=== PATIENT | male | born 1940 | race Caucasian/White ===

== ENCOUNTER → 2023-11-19 08:53 | Outpatient (REF) | payer MEDICARE, OTHER, SELFPAY ==
[2023-11-19 09:23] LABS: Urine Albumin 1+ (Neg - Trace); Urine Bilirubin Negative (Negative); Urine Character Clear (Clear); Urine Color Yellow; Urine Glucose Negative (Negative); Urine Ketone Negative (Negative); Urine Leukocyte Negative (Negative); Urine Nitrite Negative (Negative); Urine Occult Blood Negative (Negative); Urine Urobilinogen Negative (Neg - 1+)
[2023-11-19 10:18] LABS: % Eosinophils 1.8 % (0-6); % Immature Granulocytes 0.4 % (0-0.5); % Lymphocytes 16.2 % (20.5-51.1); % Monocytes 6.8 % (1.7-9.3); % Neutrophils 73.8 % (42.2-75.2); Absolute Basophils 0.1 10^3/uL (0-0.2); Absolute Eosinophils 0.1 10^3/uL (0-0.7); Absolute Lymphocytes 1.2 10^3/uL (1.2-3.4); Absolute Monocytes 0.5 10^3/uL (0.1-0.6); Absolute Neutrophils 5.3 10^3/uL (1.4-6.5); Hematocrit 31.3 % (39.0-52.0); Hemoglobin 10.7 g/dL (13.0-18.0); Mean Corp Hgb Conc. 34.2 g/dL (33.0-37.0); Mean Corpuscular Volume 93.7 fL (80.0-94.0); Mean Platelet Volume 11.8 fL (7.4-10.4); Nucleated Red Blood Cells % 0 % (-); Platelet Count 210 10^3/uL (130-400); Red Blood Cell Count 3.34 10^6/uL (4.70-6.10); Red Cell Dist. Width 12.5 % (11.5-14.5); White Blood Cell Count 7.2 10^3/uL (4.8-10.8)
[2023-11-19 10:22] LABS: Urine Bacteria Few (Negative); Urine Red Blood Cell 0-2 /HPF (0-2)
[2023-11-19 10:52] LABS: ALT (SGPT) 17 U/L (0-50); AST (SGOT) 21 U/L (17-59); Albumin 4.1 g/dl (3.5-5.0); Alkaline Phosphatase 92 U/L (38-126); Blood Urea Nitrogen 60 mg/dl (9-20); Calcium 9.2 mg/dl (8.4-10.2); Carbon Dioxide 22 mmol/L (22-30); Chloride 107 mmol/L (98-107); Glucose 98 mg/dl (70-99); HDL Cholesterol 44 mg/dl; LDL Cholesterol, Calculated 76 mg/dl; Potassium 4.5 mmol/L (3.5-5.1); Sodium 139 mmol/L (135-145); Total Bilirubin 0.6 mg/dl (0.2-1.3); Total Cholesterol 145 mg/dl (50-199); Total Protein 6.7 g/dl (6.3-8.2); Triglyceride 126 mg/dl (10-149); Very Low Density Lipoprotein 25 mg/dl (0-30); eGFR 18.61
== END ==
LOC: REG 08:53
PROVIDERS: ATTENDING PHYSICIAN Internal Medicine
DX: I10 Essential (primary) hypertension (principal); E78.2 Mixed hyperlipidemia; N18.9 Chronic kidney disease, unspecified
CPT/HCPCS: 36415; 80053; 80061; 81003; 81015; 85025

== ENCOUNTER → 2023-12-24 08:49 | Outpatient (REF) | payer MEDICARE, OTHER, SELFPAY ==
[2023-12-24 12:40] LABS: Urine Protein 68 mg/dl (0-12)
[2023-12-24 13:08] LABS: Albumin 4.3 g/dl (3.5-5.0); Blood Urea Nitrogen 47 mg/dl (9-20); Calcium 9.4 mg/dl (8.4-10.2); Carbon Dioxide 24 mmol/L (22-30); Chloride 100 mmol/L (98-107); Glucose 131 mg/dl (70-99); Iron 108 ug/dl (49-181); Sodium 134 mmol/L (135-145); eGFR 20.81
[2023-12-24 13:16] LABS: Percent Saturation 42 % (20-50); Total Iron Binding Capacity 257 ug/dl (261-462)
== END ==
LOC: RAD 08:49
PROVIDERS: ATTENDING PHYSICIAN Internal Medicine; FAMILY PHYSICIAN Internal Medicine
DX: I10 Essential (primary) hypertension (principal); N17.9 Acute kidney failure, unspecified; D64.9 Anemia, unspecified
CPT/HCPCS: 36415; 80069; 82570; 82728; 82784; 83521; 83540; 83550; 83970; 84155; 84156; 84165; 86334; 93975

== ENCOUNTER → 2024-02-02 10:21 | Outpatient (REF) | payer MEDICARE, OTHER, SELFPAY ==
[2024-02-02 12:41] LABS: Glycohemoglobin (HgbA1c) 5.3 % (4.0-5.6)
[2024-02-02 13:14] LABS: Albumin 4.2 g/dl (3.5-5.0); Blood Urea Nitrogen 44 mg/dl (9-20); Calcium 9.3 mg/dl (8.4-10.2); Carbon Dioxide 24 mmol/L (22-30); Chloride 99 mmol/L (98-107); Glucose 88 mg/dl (70-99); Potassium 3.8 mmol/L (3.5-5.1); Sodium 138 mmol/L (135-145); eGFR 19.98
[2024-02-04 12:39] LABS: 24 Hour Urine Total Volume Random mL; Urine Collection Length Random hr; Urine Free Kappa Light Chains 60.32 mg/L (0.00-32.90); Urine Free Lambda Light Chains 7.27 mg/L (0.00-3.79)
== END ==
LOC: REG 10:21
PROVIDERS: ATTENDING PHYSICIAN Internal Medicine; FAMILY PHYSICIAN Internal Medicine
DX: N17.9 Acute kidney failure, unspecified (principal); N18.4 Chronic kidney disease, stage 4 (severe); R80.9 Proteinuria, unspecified; R73.02 Impaired glucose tolerance (oral)
CPT/HCPCS: 36415; 80069; 83036; 83521; 84156; 86335

== ENCOUNTER → 2024-02-22 13:53 | Outpatient (REF) | payer MEDICARE, OTHER, SELFPAY ==
[2024-02-22 15:01] LABS: % Basophils 0.9 % (0-2); % Eosinophils 0.9 % (0-6); % Immature Granulocytes 0.3 % (0-0.5); % Lymphocytes 19.3 % (20.5-51.1); % Monocytes 7.4 % (1.7-9.3); % Neutrophils 71.2 % (42.2-75.2); Absolute Basophils 0.1 10^3/uL (0-0.2); Absolute Eosinophils 0.1 10^3/uL (0-0.7); Absolute Lymphocytes 1.3 10^3/uL (1.2-3.4); Absolute Monocytes 0.5 10^3/uL (0.1-0.6); Absolute Neutrophils 4.9 10^3/uL (1.4-6.5); Mean Corp Hgb Conc. 33.3 g/dL (33.0-37.0); Mean Corpuscular Volume 92.9 fL (80.0-94.0); Mean Platelet Volume 11.6 fL (7.4-10.4); Nucleated Red Blood Cells % 0 % (-); Platelet Count 207 10^3/uL (130-400); Red Blood Cell Count 3.23 10^6/uL (4.70-6.10); Red Cell Dist. Width 12.6 % (11.5-14.5); White Blood Cell Count 6.9 10^3/uL (4.8-10.8)
[2024-02-22 15:12] LABS: Blood Urea Nitrogen 54 mg/dl (9-20); Calcium 8.9 mg/dl (8.4-10.2); Carbon Dioxide 22 mmol/L (22-30); Chloride 101 mmol/L (98-107); Glucose 89 mg/dl (70-99); Phosphorus 4.5 mg/dl (2.5-4.5); Potassium 4.1 mmol/L (3.5-5.1); Sodium 138 mmol/L (135-145); eGFR 18.49
[2024-02-22 15:38] LABS: Urine Protein 157 mg/dl (0-12)
== END ==
LOC: REG 13:53
PROVIDERS: ATTENDING PHYSICIAN Internal Medicine; FAMILY PHYSICIAN Internal Medicine
DX: I10 Essential (primary) hypertension (principal); N18.4 Chronic kidney disease, stage 4 (severe); N17.9 Acute kidney failure, unspecified; R80.9 Proteinuria, unspecified
CPT/HCPCS: 36415; 80069; 82570; 84156; 85025

== ENCOUNTER → 2024-04-06 09:46 | Outpatient (REF) | payer MEDICARE, OTHER, SELFPAY ==
[2024-04-06 11:58] LABS: Urine Albumin 2+ (Neg - Trace); Urine Bilirubin Negative (Negative); Urine Character Clear (Clear); Urine Color Yellow; Urine Glucose Negative (Negative); Urine Ketone Negative (Negative); Urine Leukocyte Negative (Negative); Urine Nitrite Negative (Negative); Urine Occult Blood Negative (Negative); Urine Specific Gravity 1.015 (<1.030); Urine Urobilinogen Negative (Neg - 1+)
[2024-04-06 12:07] LABS: Albumin 4.1 g/dl (3.5-5.0); Blood Urea Nitrogen 60 mg/dl (9-20); Calcium 9.1 mg/dl (8.4-10.2); Carbon Dioxide 24 mmol/L (22-30); Chloride 100 mmol/L (98-107); Glucose 106 mg/dl (70-99); Phosphorus 4.2 mg/dl (2.5-4.5); Potassium 3.8 mmol/L (3.5-5.1); Sodium 141 mmol/L (135-145); eGFR 16.06
[2024-04-06 12:13] LABS: Complement C3 138 mg/dl (88-165)
[2024-04-06 12:47] LABS: Urine Squamous Cell 0-2 /LPF (Few)
[2024-04-06 12:48] LABS: Urine Amorphous Seen
[2024-04-06 12:49] LABS: Urine Red Blood Cell 0-2 /HPF (0-2); Urine White Cell 0-2 /HPF (0-5)
[2024-04-06 12:50] LABS: Urine Protein 291 mg/dl (0-12)
[2024-04-07 22:55] LABS: Myeloperoxidase Antibody 0 AU/mL (0-19); Serine Protease-3, IgG 0 AU/mL (0-19)
[2024-04-08 01:58] LABS: ANA, IgG Reflex to HEp-2 None Detected (None Detected)
[2024-04-09 00:49] LABS: Phospholipase A2 Receptor, IgG <1:10 (<1:10)
== END ==
LOC: REG 09:46
PROVIDERS: ATTENDING PHYSICIAN Internal Medicine
DX: N17.9 Acute kidney failure, unspecified (principal)
CPT/HCPCS: 36415; 80069; 81003; 81015; 82570; 83516; 84156; 86038; 86160; 86255

== ENCOUNTER 2024-05-01 07:57 | Outpatient (REF) | payer MEDICARE, OTHER, SELFPAY ==
[2024-05-01] VITALS (15 sets, daily range): BP systolic 51–163; BP diastolic 57–99
[2024-05-01 08:28] LABS: % Basophils 0.7 % (0-2); % Eosinophils 2.7 % (0-6); % Immature Granulocytes 0.3 % (0-0.5); % Lymphocytes 17.6 % (20.5-51.1); % Monocytes 6.1 % (1.7-9.3); % Neutrophils 72.6 % (42.2-75.2); Absolute Basophils 0.1 10^3/uL (0-0.2); Absolute Eosinophils 0.2 10^3/uL (0-0.7); Absolute Lymphocytes 1.3 10^3/uL (1.2-3.4); Absolute Monocytes 0.5 10^3/uL (0.1-0.6); Absolute Neutrophils 5.4 10^3/uL (1.4-6.5); Hematocrit 32.1 % (39.0-52.0); Hemoglobin 10.8 g/dL (13.0-18.0); Mean Corp Hgb Conc. 33.6 g/dL (33.0-37.0); Mean Corpuscular Hgb 32.3 pg (27.0-31.0); Mean Corpuscular Volume 96.1 fL (80.0-94.0); Mean Platelet Volume 11.1 fL (7.4-10.4); Nucleated Red Blood Cells % 0 % (-); Platelet Count 210 10^3/uL (130-400); Red Blood Cell Count 3.34 10^6/uL (4.70-6.10); Red Cell Dist. Width 12.6 % (11.5-14.5); White Blood Cell Count 7.4 10^3/uL (4.8-10.8)
[2024-05-01 08:33] LABS: INR 0.92; PT 12.7 Sec (11.4-14.6)
[2024-05-01 08:38] LABS: Blood Urea Nitrogen 51 mg/dl (9-20); Calcium 9.3 mg/dl (8.4-10.2); Carbon Dioxide 25 mmol/L (22-30); Chloride 104 mmol/L (98-107); Glucose 99 mg/dl (70-99); Potassium 4.1 mmol/L (3.5-5.1); Sodium 141 mmol/L (135-145); eGFR 15.05
[2024-05-01] MEDS: CATAPRES 0.1 MG PO (08:51)
[2024-05-01 15:10] LABS: Hematocrit 28.6 % (39.0-52.0); Hemoglobin 9.7 g/dL (13.0-18.0)
== END 2024-05-01 15:47 | disposition home or self-care (01) ==
LOC: RADI 07:57
PROVIDERS: Physician Assistant; ATTENDING PHYSICIAN Internal Medicine; FAMILY PHYSICIAN Internal Medicine
DX: N17.9 Acute kidney failure, unspecified (principal); I12.9 Hypertensive chronic kidney disease with stage 1 through stage 4 chronic kidney disease, or unspecified chronic kidney disease; N18.4 Chronic kidney disease, stage 4 (severe); D68.8 Other specified coagulation defects
CPT/HCPCS: 36415; 50200; 76942; 80048; 85014; 85018; 85025; 85610; 88305; 99152; 99153

== ENCOUNTER → 2024-05-19 13:21 | Outpatient (REF) | payer MEDICARE, OTHER, SELFPAY ==
[2024-05-19 13:59] LABS: Hematocrit 30.2 % (39.0-52.0); Mean Corp Hgb Conc. 33.1 g/dL (33.0-37.0); Mean Corpuscular Hgb 31.4 pg (27.0-31.0); Mean Platelet Volume 11.3 fL (7.4-10.4); Platelet Count 217 10^3/uL (130-400); Red Blood Cell Count 3.18 10^6/uL (4.70-6.10); Red Cell Dist. Width 12.6 % (11.5-14.5); White Blood Cell Count 6.1 10^3/uL (4.8-10.8)
[2024-05-19 14:08] LABS: Albumin 4.1 g/dl (3.5-5.0); Blood Urea Nitrogen 62 mg/dl (9-20); Carbon Dioxide 26 mmol/L (22-30); Chloride 100 mmol/L (98-107); Glucose 117 mg/dl (70-99); Potassium 3.7 mmol/L (3.5-5.1); Sodium 134 mmol/L (135-145); eGFR 12.62
== END ==
LOC: REG 13:21
PROVIDERS: ATTENDING PHYSICIAN Internal Medicine; FAMILY PHYSICIAN Internal Medicine
DX: N17.9 Acute kidney failure, unspecified (principal)
CPT/HCPCS: 36415; 80069; 85027

== ENCOUNTER → 2024-06-10 09:48 | Outpatient (REF) | payer MEDICARE, OTHER, SELFPAY ==
[2024-06-10 11:16] LABS: Albumin 3.8 g/dl (3.5-5.0); Blood Urea Nitrogen 71 mg/dl (9-20); Calcium 8.8 mg/dl (8.4-10.2); Carbon Dioxide 23 mmol/L (22-30); Chloride 101 mmol/L (98-107); Glucose 97 mg/dl (70-99); Phosphorus 5.5 mg/dl (2.5-4.5); Potassium 3.8 mmol/L (3.5-5.1); Sodium 138 mmol/L (135-145); eGFR 10.83
== END ==
LOC: REG 09:48
PROVIDERS: ATTENDING PHYSICIAN Internal Medicine; FAMILY PHYSICIAN Internal Medicine
DX: N18.4 Chronic kidney disease, stage 4 (severe) (principal); D64.9 Anemia, unspecified; I10 Essential (primary) hypertension; R80.9 Proteinuria, unspecified
CPT/HCPCS: 36415; 80069

== ENCOUNTER → 2024-06-15 10:29 | Outpatient (REF) | payer MEDICARE, OTHER, SELFPAY ==
[2024-06-15 12:30] LABS: Blood Urea Nitrogen 69 mg/dl (9-20); Carbon Dioxide 22 mmol/L (22-30); Chloride 101 mmol/L (98-107); Glucose 99 mg/dl (70-99); Phosphorus 5.6 mg/dl (2.5-4.5); Potassium 3.8 mmol/L (3.5-5.1); Sodium 137 mmol/L (135-145); eGFR 11.09
== END ==
LOC: REG 10:29
PROVIDERS: ATTENDING PHYSICIAN Internal Medicine; FAMILY PHYSICIAN Internal Medicine
DX: N18.4 Chronic kidney disease, stage 4 (severe) (principal); D64.9 Anemia, unspecified; I10 Essential (primary) hypertension; R80.9 Proteinuria, unspecified
CPT/HCPCS: 36415; 80069

== ENCOUNTER → 2024-06-21 11:06 | Outpatient (REF) | payer MEDICARE, OTHER, SELFPAY ==
[2024-06-21 13:54] LABS: Albumin 4.1 g/dl (3.5-5.0); Blood Urea Nitrogen 67 mg/dl (9-20); Calcium 8.7 mg/dl (8.4-10.2); Carbon Dioxide 21 mmol/L (22-30); Chloride 101 mmol/L (98-107); Glucose 94 mg/dl (70-99); Sodium 136 mmol/L (135-145); eGFR 10.33
== END ==
LOC: RAD 11:06
PROVIDERS: ATTENDING PHYSICIAN Surgery Vascular Surgery; FAMILY PHYSICIAN Internal Medicine; REFERRING PHYSICIAN Internal Medicine
DX: N18.4 Chronic kidney disease, stage 4 (severe) (principal); D64.9 Anemia, unspecified; I10 Essential (primary) hypertension; R80.9 Proteinuria, unspecified; Z01.818 Encounter for other preprocedural examination
CPT/HCPCS: 36415; 80069; 93985

== ENCOUNTER 2024-06-29 09:30 | Day surgery (SDC) | payer MEDICARE, OTHER, SELFPAY ==
[2024-06-29] VITALS (13 sets, daily range): BP systolic 133–183; BP diastolic 57–85; BMI 24.8
[2024-06-29 09:58] LABS: Hematocrit 26.9 % (39.0-52.0); Hemoglobin 9.1 g/dL (13.0-18.0); Mean Corp Hgb Conc. 33.8 g/dL (33.0-37.0); Mean Corpuscular Hgb 31.2 pg (27.0-31.0); Mean Corpuscular Volume 92.1 fL (80.0-94.0); Mean Platelet Volume 11.6 fL (7.4-10.4); Platelet Count 205 10^3/uL (130-400); Red Blood Cell Count 2.92 10^6/uL (4.70-6.10); Red Cell Dist. Width 12.6 % (11.5-14.5); White Blood Cell Count 6.8 10^3/uL (4.8-10.8)
--- NOTE | 2024-06-29 10:17 | W.SUR.PREOP ---
Pre-Operative Surgical Note
-
I have examined this patient prior to the performance of the scheduled procedure.
The patient's condition is unchanged from the time of the current History and
Physical and the patient is able to undergo the scheduled procedure.
[2024-06-29 10:26] LABS: INR 0.97; PT 13.4 Sec (11.4-14.6)
[2024-06-29] MEDS: BACTROBAN NASAL 1 GRAM NASAL (10:27)
[2024-06-29] MEDS: PERIDEX 0.12% ORAL RINSE 15 ML PO (10:28)
[2024-06-29 10:30] LABS: Blood Urea Nitrogen 71 mg/dl (9-20); Calcium 9.2 mg/dl (8.4-10.2); Carbon Dioxide 21 mmol/L (22-30); Chloride 105 mmol/L (98-107); Estimated Creatinine Clearance 10 ml/min; Glucose 102 mg/dl (70-99); Potassium 3.8 mmol/L (3.5-5.1); Sodium 139 mmol/L (135-145); eGFR 9.87
--- NOTE | 2024-06-29 10:31 | OR.RPT ---
Operative Report
Operative Report
PROCEDURE DATE: 06/29/2024
Preoperative diagnosis: Chronic kidney disease, approaching need for hemodialysis.
Postoperative diagnosis: Same
Procedure: Left upper extremity brachiocephalic arteriovenous fistula creation
Surgeon: Alden
Top And Seat Cover Fitter: KARIME England, required for all aspects of procedure including assistance with traction/countertraction, following a suture line, assistance with closure.
Complications: None
Anesthesia: General
Indications for procedure:
Chronic kidney disease worsening. Referred for AV access creation. Risk/benefits/alternatives all fully discussed. Patient understood all wished to proceed.
Description of procedure:
Patient was identified brought to the operating room placed on the table in supine position. Patient's vein mapping had shown marginal vein. After the administration of anesthesia, I assessed his veins myself in the left upper extremity with a
ultrasound. This demonstrated the upper arm cephalic vein to be suitable. Slightly on the smaller side but definitely reasonable. Therefore I elected to proceed with attempted brachiocephalic arteriovenous fistula creation. After the adequate
administration of anesthesia and perioperative antibiotics he was prepped and draped in the standard surgical fashion. A standard preoperative timeout was undertaken and everybody was in agreement the plan. A transverse incision was made in the
proximal volar aspect of the forearm just distal to the antecubital fossa. This was carried through skin subcutaneous tissue. The antecubital extension of the cephalic vein was identified and carefully dissected away from surrounding structures
and great care to avoid any injury to structures. The vein itself seemed of reasonable size and caliber. Any branches were ligated between silk ties and then divided. As such I was able to mobilize a suitable length of cephalic vein. Once I
done this I then deepened my dissection in the medial aspect of the incision site through the fascial layer. The brachial artery was carefully identified and carefully dissected away from surrounding structures take great care to avoid injury to
structures. I passed a vessel loop around it proximally and distally. Next I gave the patient 3000 units of intravenous heparin. I then ligated the cephalic vein distally in my field with a silk tie and a clip. I then transected it. I
distended under heparinized saline. It distended very well. I marked the anterior surface under distention to avoid any kinking or twisting. The vein was suitable size but just to be sure I sequentially ran 2, 2.5, 3 mm dilators through which
all passed without any difficulty whatsoever. Next I tightened my double looped Vesseloops on the artery proximally and distally. I then made an arteriotomy with 11 blade extended using a Ryan scissor. I spatulated the cephalic vein and sewed an
end to side anastomosis using a running 6-0 Prolene suture (four-quadrant technique). Prior to completing and tying down my suture line I backbled and forebled the port lions artery. Next I released my bulldog clamp on the vein and then released my
Vesseloops on the artery. There was an excellent thrill in the fistula. There was an easily palpable pulse at the wrist in the radial artery. At this point I was very satisfied. I irrigated. I achieved and confirmed full hemostasis. We then
closed in layers using 3-0 Vicryl deep dermal layer followed by 4-0 Monocryl subcuticular stitch. Dermabond was applied. The patient tolerated the procedure well.
--- NOTE | 2024-06-29 12:30 | W.SUR.POST ---
Surgical Immediate Post Op
Note
Pre Op Diagnosis: End-stage renal disease
Post Op Diagnosis: Same
Procedure Performed: Left upper extremity brachiocephalic AV fistula creation
Primary Surgeon: Alden
Assist: Samanta HERNANDEZ
Anesthesia: LMA
Estimated Blood Loss: Less than 2 cc
Fluids: See anesthesia flowsheet
Drains/Shunts: None
Specimens/Cultures: None
Doppler/Duplex/Angio (Y/N): Y
Complications: None
Operative Findings: Palpable thrill upon completion
== END 2024-06-29 14:37 | disposition home or self-care (01) ==
LOC: CATH 09:30
PROVIDERS: ATTENDING PHYSICIAN Surgery Vascular Surgery; PRIMARYCARE PHYSICIAN Internal Medicine
DX: I12.9 Hypertensive chronic kidney disease with stage 1 through stage 4 chronic kidney disease, or unspecified chronic kidney disease (principal); N18.4 Chronic kidney disease, stage 4 (severe); K21.9 Gastro-esophageal reflux disease without esophagitis
CPT/HCPCS: 36821; 80048; 85027; 85610; 85730; 86850; 86900; 86901; 93005

== ENCOUNTER → 2024-07-07 10:26 | Outpatient (REF) | payer MEDICARE, OTHER, SELFPAY ==
[2024-07-07 12:09] LABS: Albumin 3.9 g/dl (3.5-5.0); Blood Urea Nitrogen 81 mg/dl (9-20); Calcium 8.8 mg/dl (8.4-10.2); Carbon Dioxide 19 mmol/L (22-30); Chloride 102 mmol/L (98-107); Glucose 117 mg/dl (70-99); Phosphorus 6.1 mg/dl (2.5-4.5); Potassium 4.2 mmol/L (3.5-5.1); Sodium 136 mmol/L (135-145); eGFR 10.83
== END ==
LOC: REG 10:26
PROVIDERS: ATTENDING PHYSICIAN Internal Medicine; FAMILY PHYSICIAN Internal Medicine
DX: N18.4 Chronic kidney disease, stage 4 (severe) (principal); D64.9 Anemia, unspecified; I10 Essential (primary) hypertension; R80.9 Proteinuria, unspecified
CPT/HCPCS: 36415; 80069

== ENCOUNTER → 2024-07-12 11:22 | Outpatient (REF) | payer MEDICARE, OTHER, SELFPAY ==
[2024-07-12 13:54] LABS: Albumin 3.7 g/dl (3.5-5.0); Blood Urea Nitrogen 84 mg/dl (9-20); Calcium 8.9 mg/dl (8.4-10.2); Carbon Dioxide 23 mmol/L (22-30); Chloride 102 mmol/L (98-107); Glucose 94 mg/dl (70-99); Potassium 4.4 mmol/L (3.5-5.1); Sodium 137 mmol/L (135-145); eGFR 9.65
== END ==
LOC: REG 11:22
PROVIDERS: ATTENDING PHYSICIAN Internal Medicine; FAMILY PHYSICIAN Internal Medicine
DX: N18.4 Chronic kidney disease, stage 4 (severe) (principal); D64.9 Anemia, unspecified; I10 Essential (primary) hypertension; R80.9 Proteinuria, unspecified
CPT/HCPCS: 36415; 80069

== ENCOUNTER → 2024-07-26 10:53 | Outpatient (REF) | payer MEDICARE, OTHER, SELFPAY ==
[2024-07-26 11:31] LABS: Hematocrit 24.3 % (39.0-52.0); Hemoglobin 8.1 g/dL (13.0-18.0); Mean Corp Hgb Conc. 33.3 g/dL (33.0-37.0); Mean Corpuscular Hgb 31.9 pg (27.0-31.0); Mean Corpuscular Volume 95.7 fL (80.0-94.0); Mean Platelet Volume 11.3 fL (7.4-10.4); Platelet Count 189 10^3/uL (130-400); Red Blood Cell Count 2.54 10^6/uL (4.70-6.10); Red Cell Dist. Width 12.5 % (11.5-14.5); White Blood Cell Count 7.5 10^3/uL (4.8-10.8)
[2024-07-26 12:12] LABS: Intact PTH 113.9 pg/ml (13.6-85.8)
[2024-07-26 18:03] LABS: Albumin 4.1 g/dl (3.5-5.0); Blood Urea Nitrogen 79 mg/dl (9-20); Calcium 9.4 mg/dl (8.4-10.2); Carbon Dioxide 20 mmol/L (22-30); Chloride 99 mmol/L (98-107); Glucose 99 mg/dl (70-99); Iron 70 ug/dl (49-181); Percent Saturation 26 % (20-50); Phosphorus 5.8 mg/dl (2.5-4.5); Potassium 3.9 mmol/L (3.5-5.1); Sodium 135 mmol/L (135-145); Total Iron Binding Capacity 260 ug/dl (261-462)
== END ==
LOC: REG 10:53
PROVIDERS: ATTENDING PHYSICIAN Internal Medicine; FAMILY PHYSICIAN Internal Medicine
DX: N18.4 Chronic kidney disease, stage 4 (severe) (principal); I10 Essential (primary) hypertension; D64.9 Anemia, unspecified
CPT/HCPCS: 36415; 80069; 82728; 83540; 83550; 83970; 85027

== ENCOUNTER → 2024-08-03 11:07 | Outpatient (REF) | payer MEDICARE, OTHER, SELFPAY | LOC: RAD 11:07 | PROVIDERS: ATTENDING PHYSICIAN Physician Assistant; FAMILY PHYSICIAN Internal Medicine | DX: I77.0 Arteriovenous fistula, acquired (principal) | CPT/HCPCS: 93990 ==

== ENCOUNTER 2024-08-24 14:04 | Outpatient (RCR) | payer MEDICARE, OTHER, SELFPAY ==
[2024-08-08 14:42] VITALS: BP 155/67
[2024-08-08] MEDS: RETACRIT 10000 UNITS SC (14:56)
[2024-08-15 14:38] LABS: % Basophils 0.5 % (0-2); % Eosinophils 1.4 % (0-6); % Immature Granulocytes 0.2 % (0-0.5); % Lymphocytes 15.2 % (20.5-51.1); % Monocytes 7.7 % (1.7-9.3); Absolute Eosinophils 0.1 10^3/uL (0-0.7); Absolute Monocytes 0.5 10^3/uL (0.1-0.6); Absolute Neutrophils 4.7 10^3/uL (1.4-6.5); Hemoglobin 8.1 g/dL (13.0-18.0); Mean Corp Hgb Conc. 33.8 g/dL (33.0-37.0); Mean Corpuscular Hgb 31.8 pg (27.0-31.0); Mean Corpuscular Volume 94.1 fL (80.0-94.0); Mean Platelet Volume 10.8 fL (7.4-10.4); Platelet Count 215 10^3/uL (130-400); Red Blood Cell Count 2.55 10^6/uL (4.70-6.10); White Blood Cell Count 6.2 10^3/uL (4.8-10.8)
[2024-08-17] MEDS: RETACRIT 10000 UNITS SC (14:40)
[2024-08-17 15:06] VITALS: BP 156/60
[2024-08-24 14:40] LABS: % Basophils 0.3 % (0-2); % Eosinophils 1.2 % (0-6); % Immature Granulocytes 0.2 % (0-0.5); % Monocytes 7.5 % (1.7-9.3); % Neutrophils 75.8 % (42.2-75.2); Absolute Eosinophils 0.1 10^3/uL (0-0.7); Absolute Monocytes 0.5 10^3/uL (0.1-0.6); Absolute Neutrophils 4.9 10^3/uL (1.4-6.5); Hematocrit 25.2 % (39.0-52.0); Hemoglobin 8.7 g/dL (13.0-18.0); Mean Corp Hgb Conc. 34.5 g/dL (33.0-37.0); Mean Corpuscular Hgb 32.6 pg (27.0-31.0); Mean Corpuscular Volume 94.4 fL (80.0-94.0); Mean Platelet Volume 10.1 fL (7.4-10.4); Platelet Count 191 10^3/uL (130-400); Red Blood Cell Count 2.67 10^6/uL (4.70-6.10); Red Cell Dist. Width 13.1 % (11.5-14.5); White Blood Cell Count 6.4 10^3/uL (4.8-10.8)
[2024-08-24 14:50] VITALS: BP 149/62
[2024-08-24 15:15] LABS: Blood Urea Nitrogen 79 mg/dl (9-20); Calcium 9.6 mg/dl (8.4-10.2); Carbon Dioxide 27 mmol/L (22-30); Chloride 100 mmol/L (98-107); Glucose 142 mg/dl (70-99); Potassium 3.9 mmol/L (3.5-5.1); Sodium 140 mmol/L (135-145)
[2024-08-24] MEDS: RETACRIT 20000 UNITS SC (15:15)
== END 2024-08-28 14:06 | disposition home or self-care (01) ==
LOC: OID 14:04
PROVIDERS: ATTENDING PHYSICIAN Internal Medicine; FAMILY PHYSICIAN Internal Medicine
DX: N18.4 Chronic kidney disease, stage 4 (severe) (principal); D63.1 Anemia in chronic kidney disease; N17.9 Acute kidney failure, unspecified
CPT/HCPCS: 36415; 80048; 85025; 96372; Q5106

== ENCOUNTER 2024-09-14 13:23 | Outpatient (RCR) | payer MEDICARE, OTHER, SELFPAY ==
[2024-08-31 14:00] LABS: % Basophils 0.9 % (0-2); % Eosinophils 1.6 % (0-6); % Immature Granulocytes 0.4 % (0-0.5); % Lymphocytes 13.4 % (20.5-51.1); % Monocytes 7.7 % (1.7-9.3); Absolute Basophils 0.1 10^3/uL (0-0.2); Absolute Eosinophils 0.1 10^3/uL (0-0.7); Absolute Lymphocytes 0.8 10^3/uL (1.2-3.4); Absolute Monocytes 0.4 10^3/uL (0.1-0.6); Absolute Neutrophils 4.3 10^3/uL (1.4-6.5); Hematocrit 27.7 % (39.0-52.0); Hemoglobin 9.3 g/dL (13.0-18.0); Mean Corp Hgb Conc. 33.6 g/dL (33.0-37.0); Mean Corpuscular Hgb 32.5 pg (27.0-31.0); Mean Corpuscular Volume 96.9 fL (80.0-94.0); Mean Platelet Volume 9.8 fL (7.4-10.4); Platelet Count 203 10^3/uL (130-400); Red Blood Cell Count 2.86 10^6/uL (4.70-6.10); Red Cell Dist. Width 13.7 % (11.5-14.5); White Blood Cell Count 5.7 10^3/uL (4.8-10.8)
[2024-08-31 14:50] LABS: Blood Urea Nitrogen 79 mg/dl (9-20); Calcium 9.2 mg/dl (8.4-10.2); Carbon Dioxide 24 mmol/L (22-30); Chloride 103 mmol/L (98-107); Glucose 115 mg/dl (70-99); Sodium 142 mmol/L (135-145); eGFR 7.35
[2024-08-31 14:53] LABS: Potassium 3.7 mmol/L (3.5-5.1)
[2024-08-31 15:00] VITALS: BP 132/52
[2024-08-31 15:14] LABS: Albumin 3.8 g/dl (3.5-5.0); Phosphorus 5.8 mg/dl (2.5-4.5)
[2024-08-31] MEDS: RETACRIT 20000 UNITS SC (15:18)
[2024-09-07 14:29] LABS: % Basophils 0.5 % (0-2); % Eosinophils 1.2 % (0-6); % Immature Granulocytes 0.2 % (0-0.5); % Lymphocytes 16.1 % (20.5-51.1); % Monocytes 7.6 % (1.7-9.3); % Neutrophils 74.4 % (42.2-75.2); Absolute Eosinophils 0.1 10^3/uL (0-0.7); Absolute Lymphocytes 0.9 10^3/uL (1.2-3.4); Absolute Monocytes 0.4 10^3/uL (0.1-0.6); Absolute Neutrophils 4.3 10^3/uL (1.4-6.5); Hematocrit 29.5 % (39.0-52.0); Hemoglobin 9.9 g/dL (13.0-18.0); Mean Corp Hgb Conc. 33.6 g/dL (33.0-37.0); Mean Corpuscular Hgb 31.9 pg (27.0-31.0); Mean Corpuscular Volume 95.2 fL (80.0-94.0); Platelet Count 217 10^3/uL (130-400); Red Cell Dist. Width 13.6 % (11.5-14.5); White Blood Cell Count 5.8 10^3/uL (4.8-10.8)
[2024-09-07 14:49] VITALS: BP 140/51
[2024-09-07] MEDS: RETACRIT 20000 UNITS SC (15:11)
[2024-09-14 13:49] LABS: Hematocrit 31.8 % (39.0-52.0); Hemoglobin 10.5 g/dL (13.0-18.0)
[2024-09-14 15:22] LABS: Albumin 4.2 g/dl (3.5-5.0); Blood Urea Nitrogen 92 mg/dl (9-20); Calcium 9.2 mg/dl (8.4-10.2); Carbon Dioxide 23 mmol/L (22-30); Chloride 100 mmol/L (98-107); Glucose 142 mg/dl (70-99); Potassium 3.8 mmol/L (3.5-5.1); Sodium 139 mmol/L (135-145); eGFR 6.99
== END 2024-09-27 23:59 | disposition home or self-care (01) ==
LOC: OID 13:23
PROVIDERS: ATTENDING PHYSICIAN Internal Medicine; FAMILY PHYSICIAN Internal Medicine
DX: N18.4 Chronic kidney disease, stage 4 (severe) (principal); D63.1 Anemia in chronic kidney disease; N17.9 Acute kidney failure, unspecified
CPT/HCPCS: 36415; 80048; 80069; 82040; 84100; 85014; 85018; 85025; 96372; Q5106

== ENCOUNTER 2024-09-20 15:24 | Inpatient (IN) | payer MEDICARE, OTHER, SELFPAY ==
[2024-09-19] VITALS (7 sets, daily range): BP systolic 137–167; BP diastolic 60–73; BMI 25.3
[2024-09-19 12:46] LABS: % Basophils 0.4 % (0-2); % Eosinophils 0.8 % (0-6); % Immature Granulocytes 0.2 % (0-0.5); % Lymphocytes 16.7 % (20.5-51.1); % Monocytes 10.7 % (1.7-9.3); % Neutrophils 71.2 % (42.2-75.2); Absolute Lymphocytes 0.8 10^3/uL (1.2-3.4); Absolute Monocytes 0.5 10^3/uL (0.1-0.6); Absolute Neutrophils 3.4 10^3/uL (1.4-6.5); Hematocrit 30.4 % (39.0-52.0); Hemoglobin 10.4 g/dL (13.0-18.0); Mean Corp Hgb Conc. 34.2 g/dL (33.0-37.0); Mean Corpuscular Hgb 32.2 pg (27.0-31.0); Mean Corpuscular Volume 94.1 fL (80.0-94.0); Nucleated Red Blood Cells % 0 % (-); Platelet Count 181 10^3/uL (130-400); Red Blood Cell Count 3.23 10^6/uL (4.70-6.10); Red Cell Dist. Width 13.1 % (11.5-14.5); White Blood Cell Count 4.8 10^3/uL (4.8-10.8)
[2024-09-19 12:56] LABS: ALT (SGPT) 14 U/L (0-50); AST (SGOT) 19 U/L (17-59); Albumin 3.9 g/dl (3.5-5.0); Alkaline Phosphatase 135 U/L (38-126); Blood Urea Nitrogen 91 mg/dl (9-20); Calcium 8.6 mg/dl (8.4-10.2); Carbon Dioxide 24 mmol/L (22-30); Chloride 102 mmol/L (98-107); Estimated Creatinine Clearance 7 ml/min; Glucose 103 mg/dl (70-99); Potassium 3.7 mmol/L (3.5-5.1); Sodium 138 mmol/L (135-145); Total Bilirubin 0.6 mg/dl (0.2-1.3); Total Protein 6.1 g/dl (6.3-8.2); eGFR 7.35
--- NOTE | 2024-09-19 13:00 | ED.GENMED ---
History of Present Illness
General
Chief Complaint: Abnormal Lab Value
Source: patient
Exam Limitations: none
Time Seen by Provider: 09/19/24 11:48
History of Present Illness
History of Present Illness:
83-year-old male presents stating that he was sent in by his lunchroom monitor for his first hemodialysis session. He has history of end-stage renal disease and was advised to come in today for his first session. He has a fistula in the left upper
extremity. He has no complaints of chest pain or shortness of breath.
Phy Exam
Physical Exam
Physical Exam:
General: Well-appearing male no acute respiratory distress
HEENT: Normocephalic atraumatic
Heart: Regular rate and rhythm
Lungs: Clear no wheeze
Abdomen is soft nontender
Extremities: 6 no cyanosis but mild pain edema bilateral lower extremities
Course
Orders/Labs/Results
Orders:
Orders
09/19/24 12:22
Complete Blood Count/With Diff Urgent
Comprehensive Metabolic Panel Urgent
Abnormal Lab Results
09/19/24
12:22
RBC 3.23 L 10^6/uL
(4.70-6.10)
Hgb 10.4 L g/dL
(13.0-18.0)
Hct 30.4 L %
(39.0-52.0)
MCV 94.1 H fL
(80.0-94.0)
MCH 32.2 H pg
(27.0-31.0)
MPV 11.0 H fL
(7.4-10.4)
Absolute Lymphs (auto) 0.8 L 10^3/uL
(1.2-3.4)
Lymphocytes % 16.7 L %
(20.5-51.1)
Monocytes % 10.7 H %
(1.7-9.3)
BUN 91 H mg/dl
(9-20)
Creatinine 6.9 H* mg/dL
(0.7-1.3)
Glucose 103 H mg/dl
(70-99)
Alkaline Phosphatase 135 H U/L
(38-126)
Total Protein 6.1 L g/dl
(6.3-8.2)
09/19/24 12:22
09/19/24 12:22
Vital Signs
Initial and Last Documented VS:
Initial Vital Signs
Temp Pulse Resp BP Pulse Ox
97.5 F 64 18 167/72 98
09/19/24 10:20 09/19/24 10:20 09/19/24 10:20 09/19/24 10:20 09/19/24 10:20
Last Documented Vital Signs
Temp Pulse Resp BP Pulse Ox
97.5 F 63 13 151/62 98
09/19/24 10:20 09/19/24 12:45 09/19/24 12:45 09/19/24 12:27 09/19/24 12:45
MDM/Problems Addressed
Differential Diagnosis Includes:
Patient sent in for hemodialysis to be started. He has yet to receive that. He has a working fistula in the left arm
*Critical Care Note
Total Time (30-74mins, 75-104mins- exclusive of procedures): Not Applicable
Update Note
Update Note:
Labs reviewed. Patient with chronic kidney disease. Discussed with nephrology. Will admit to hospital for the patient's first hemodialysis session
ED Attending Note
-
Portions of this chart may have been created with voice recognition software.� Occasional wrong word or��sound alike� substitutions may have occurred due to the inherent limitations of voice recognition software.
Discharge Plan
Departure
Patient Disposition: Admit
Date of Disposition: 09/19/24
Time of Disposition: 13:14
Presentation/result/management discussed w/ accepting MD/DO: Hospitalist
Discharge Problem:
ESRD (end stage renal disease)
Prescriptions:
No Action
hydralazine 25 mg Tablet
25 mg PO BID
amlodipine 10 mg Tablet
10 mg PO DAILY
simvastatin 20 mg Tablet
20 mg PO QPM
hydrochlorothiazide 25 mg Tablet
25 mg PO DAILY
PreserVision AREDS 4,296 mcg-226 mg-90 mg Capsule
1 cap PO QPM
calcium carbonate [Tums] 200 mg calcium (500 mg) Tablet,Chewable
500 mg PO TID
Interventions
Interventions:
*Risk Screen - Suicide Last Done: 09/19/24 10:21
*General Assessment Last Done: 09/19/24 10:21
*Neglect/Abuse Screening Last Done: 09/19/24 10:21
*ED- Fall Risk Assessment Last Done: 09/19/24 12:22
*ED COVID-19 Vaccine History Last Done: 09/19/24 10:21
Discharge Date and Time
Print Language: DANISH
--- NOTE | 2024-09-19 13:02 | HPS.HSE ---
Family Physician
-
Family Physician:
Chief Complaint
-
for dialysis
History of Present Illness
83 year old with PMH for HTN,prostate cancer,HLD,ESRD,rectal bleeding,squamous cell carcinoma of skin sent in by nephrology for his first Dialysis session. patient stated chills and urinary frequency for past few months. Denied CRISTOBAL,dizzy or syncope.
denied fever, chest pain, sob. denied abdominal pain,n,v,d. denied dysuria or hematuria. patient stated urinary frequency every two hours.
admitting for further management.
Medical History
Past Medical History
Past Medical History: Reports Other
Additional Past Medical History:
HTN
prostate cancer
HLD
ESRD
rectal bleeding
squamous cell carcinoma of skin
Past Surgical History: Reports Other
Additional Past Surgical History:
Tonsillectomy
cataract surgery
left foot surgery
Social History
Tobacco: Non-smoker
Alcohol: None
Drug: None
Personal: Single
Living: Alone
Family History
Family History: Not pertinent
Allergies / Home Medications
Allergies reflects when Allergies were last updated in [employer].
Home Medications with original date entered in [employer]
Allergy/Medication List:
Allergies
Allergy/AdvReac Type Severity Reaction Status Date / Time
No Known Allergies Allergy Verified 09/19/24 10:21
Home Medications
amlodipine 10 mg tablet 10 mg PO DAILY 04/26/24
hydralazine 25 mg tablet 25 mg PO BID 04/26/24
hydrochlorothiazide 25 mg tablet 25 mg PO DAILY 04/26/24
simvastatin 20 mg tablet 20 mg PO QPM 04/26/24
vitamins A,C,G-qsbs-qzogdc 4,296 mcg-226 mg-90 mg capsule (PreserVision AREDS) 1 cap PO QPM 06/26/24
calcium carbonate (Tums) 500 mg PO TID 08/17/24
Review of Systems
-
Constitutional: Reports Chills
EENT: Reports No Symptoms
Respiratory: Reports No Symptoms
Cardiac: Reports No Symptoms
Abdomen/GI: Reports No Symptoms
: Reports Other (urinary frequency)
Musculoskeletal: Reports No Symptoms
Skin: Reports No Symptoms
Neurological: Reports No Symptoms
Endocrine: Reports No Symptoms
Hematologic/Lymphatic: Reports No Symptoms
Psych: Reports No Symptoms
Physical Exam
Vital Signs
Vital Signs
Temp Pulse Resp BP Pulse Ox
97.5 F 63 13 151/62 98
09/19/24 10:20 09/19/24 12:45 09/19/24 12:45 09/19/24 12:27 09/19/24 12:45
Physical Exam
General: Well Developed, Well Nourished and No Apparent Distress
HEENT: NormoCephalic, Moist mucous membranes and Atraumatic
Respiratory: Clear
Cardiac: S1/S2 and Regular Rhythm; No Murmur or Rub
GI: Soft, Non Tender, Non Distended and Normal Bowel Sounds; No Organomegaly
Rectal: Deferred by Provider
Musculoskeletal: No Clubbing, No Cyanosis and Other (LE edema)
Skin: No Rash
Neuro: AO x 3 and Nonfocal/grossly intact
Psych: Calm
Laboratory Results
-
09/19/24 12:22
09/19/24 12:22
Laboratory Results
Total Bilirubin 0.6 mg/dl (0.2-1.3) 09/19/24 12:22
AST 19 U/L (17-59) 09/19/24 12:22
ALT 14 U/L (0-50) 09/19/24 12:22
Alkaline Phosphatase 135 U/L (38-126) H 09/19/24 12:22
Data Reviewed
-
Lab Data: Labs Reviewed by me
Impression/Plan
-
#ESRD on dialysis
-Nephro consulted for first dialysis session
-left UA fistula in place
#urinary frequency/chill
-obtain UA
#anemia of chronic disease
-hgb stable at 10.4
-no active bleeding
-ctm
#Essential HTN
#HLD
-Norvasc and statin continued
-hctz continued
#DVT prophylaxis
#CODE status
-full code
--- NOTE | 2024-09-19 13:21 | W.PN.UPDATE ---
Update Note
Progress Note Update
This is an addendum to the H&P written by Palak Cordova on 09/19/2024.� Patient seen and examined independently with [employer].
83-year-old male past medical history of ESRD, hypertension, hyperlipidemia, prostate cancer, chronic urinary frequency, sent in for first hemodialysis session.� He has a working fistula in the left arm.
Vital signs normal.� Labs show creatinine of 6.9.� No electrolyte abnormalities or acidosis.� No signs of volume overload apart from lower extremity swelling.� Hemoglobin of 10.4. Only symptom is itching and urinary frequency likely from ESRD.
Check urinalysis.� Nephrology consulted for dialysis.
--- NOTE | 2024-09-19 14:16 | W.CON.NEPH ---
Consultation
-
Date/Time Consultation Requested: 09/19/2024 12:00 PM
Date/Time Consultation Performed: 09/19/2024 2:15 PM
Requesting Provider: Dr. Mar
Performing Provider: Dr. Manzano
Reason for Consultation: Chronic kidney disease stage V
Medical History
-
Chief Complaint: Chronic kidney disease stage V
History of Present Illness:
The patient is an 83-year-old male with a past medical history of hypertension maintained on amlodipine hydralazine and hydrochlorothiazide, chronic kidney disease stage V with baseline creatinine of around 6-7, indwelling left upper extremity AV
fistula, hyperlipidemia on statin therapy, who presented to the hospital for initiation of dialysis. On presentation to the hospital his BUN was 91 with a creatinine of 6.9. His complaints are of ongoing pruritus and dysuria which has been present
over past several months.
Past Medical History
HTN
prostate cancer
HLD
CKD 5
rectal bleeding
squamous cell carcinoma of skin
Anemia
Past Surgical History: Reports Other
Additional Past Surgical History:
Tonsillectomy
cataract surgery
left foot surgery
Left upper extremity AV fistula
Social History
Tobacco: Non-Smoker
Alcohol: None
Personal: Single
Living: Alone
Family History
Family History: Not Pertinent
Allergies / Home Medications
Allergy/AdvReac Type Severity Reaction Status Date / Time
No Known Allergies Allergy Verified 09/19/24 10:21
�Medication �Instructions �Recorded �Confirmed �Type
amlodipine 10 mg tablet 10 mg PO DAILY 04/26/24 09/19/24 History
hydralazine 25 mg tablet 25 mg PO BID 04/26/24 09/19/24 History
hydrochlorothiazide 25 mg tablet 25 mg PO DAILY 04/26/24 09/19/24 History
simvastatin 20 mg tablet 20 mg PO QPM 04/26/24 09/19/24 History
calcium carbonate (Tums) 500 mg PO TID 08/17/24 09/19/24 History
sodium bicarbonate 650 mg tablet 650 mg PO BID 09/19/24 09/19/24 History
Review of Systems
-
History Source: Patient
All other systems: Negative unless noted
: Dysuria and Urgency
Skin: Itching
Physical Exam
Vital Signs
Vital Signs
Temp Pulse Resp BP Pulse Ox
97.5 F 65 20 137/67 97
09/19/24 10:20 09/19/24 13:45 09/19/24 13:45 09/19/24 13:00 09/19/24 13:45
Lab Results
09/19/24 12:22
09/19/24 12:22
WBC 4.8 10^3/uL (4.8-10.8) 09/19/24 12:22
RBC 3.23 10^6/uL (4.70-6.10) L 09/19/24 12:22
Hgb 10.4 g/dL (13.0-18.0) L 09/19/24 12:22
Hct 30.4 % (39.0-52.0) L 09/19/24 12:22
Plt Count 181 10^3/uL (130-400) 09/19/24 12:22
Sodium 138 mmol/L (135-145) 09/19/24 12:22
Potassium 3.7 mmol/L (3.5-5.1) 09/19/24 12:22
Chloride 102 mmol/L (98-107) 09/19/24 12:22
Carbon Dioxide 24 mmol/L (22-30) 09/19/24 12:22
BUN 91 mg/dl (9-20) H 09/19/24 12:22
Creatinine 6.9 mg/dL (0.7-1.3) H* 09/19/24 12:22
eGFR 7.35 09/19/24 12:22
Glucose 103 mg/dl (70-99) H 09/19/24 12:22
Calcium 8.6 mg/dl (8.4-10.2) 09/19/24 12:
Albumin 3.9 g/dl (3.5-5.0) 09/19/24 12:
Physical Exam
General: AOx3, Nontoxic , NAD
HEENT: PERRL, EOMI, Anicteric, Conjunctivae Clear, Ear/Nose Intact, Hearing Normal, Oropharynx Clear/Moist, Dentition Intact, Facial Symmetry, Neck Supple, Neck: Trachea Midline, No JVD and No Thyromegaly, no Bruits
Respiratory: Clear to auscultation bilaterally with normal lung exersion
Cardiac: S1/S2 and Regular Rate/Rhythm
Breast: Deferred by me
Abdomen: Soft, Nontender, Nondistended, Normal Bowel Sounds and No Hepatosplenomegaly
Rectal: Deferred by Provider
Genito-urinary: No Costovertebral Tenderness
Extremities: No Clubbing, No Cyanosis and No Edema
Skin: No Rash or open lesions
Neuro: Nonfocal/Grossly Intact, CN II-XII (Intact) and Strength (Musculoskeletal exam 5 out of 5 both upper and lower extremities), no asterixis
Hematologic/Lymphatic: No Cervical Lymphadenopathy, No Submandibular Lymphadenopathy and No Supraclavicular Lymphadenopathy
Psych: Mood/afflect pleasant, Insight/judgement good and Appropriate
Vascular: plus 2 pedal and radial pulses
Vascular Access: AVF (Left upper extremity: Good thrill and bruit)
Data Reviewed
-
Labs: Labs Reviewed by me (BMP CBC)
Old Records: Reviewed (Reviewed previous creatinine levels 7.2 from date 09/14/2024)
Assessment/Plan
-
Impression:
CKD 5
Hypertension
Dyslipidemia
Anemia
Hyperphosphatemia
Left upper extremity AV
Metabolic acidosis
Plan:
-for intiation of HD
- Will attempt to utilize AV fistula
- Appropriate sodium and potassium dietary restrictions
- Maintain oral antihypertensives for hypertension
- Will provide ASTRID therapy for anemia of chronic kidney
- Will provide binder therapy if hyperphosphatemia persist on dialysis
[2024-09-19 16:27] LABS: Urine Albumin 3+ (Neg - Trace); Urine Bilirubin Negative (Negative); Urine Character Clear (Clear); Urine Color Yellow; Urine Glucose Negative (Negative); Urine Ketone Negative (Negative); Urine Leukocyte Negative (Negative); Urine Nitrite Negative (Negative); Urine Occult Blood 1+ (Negative); Urine Urobilinogen Negative (Neg - 1+)
[2024-09-19 17:19] LABS: Urine Red Blood Cell 0-2 /HPF (0-2)
[2024-09-19 19:11] LABS: Urine Squamous Cell 0-2 /LPF (Few)
[2024-09-19] MEDS: HEPARIN 5000 UNITS SC (20:11)
[2024-09-19] MEDS: TUMS CHEWABLE TABLET 200 MG PO (20:12)
[2024-09-19] MEDS: APRESOLINE 25 MG PO (20:12)
[2024-09-19] MEDS: SODIUM BICARBONATE 650 MG PO (20:12)
--- NOTE | 2024-09-20 01:51 | PTCARENOTE ---
episode of shaking/seizure like activity. prn meds given see mar. - education to family given with support to family members. family decided to go home and come back in morning.
[2024-09-20 08:00] VITALS: BP 144/66
[2024-09-20] MEDS: HEPARIN 5000 UNITS SC ×2 (09:15→20:28)
[2024-09-20] MEDS: SODIUM BICARBONATE 650 MG PO ×2 (09:15→20:28)
[2024-09-20] MEDS: TUMS CHEWABLE TABLET 200 MG PO ×3 (09:15→21:51)
--- NOTE | 2024-09-20 10:25 | W.PN.HOSP.TC ---
Addendum entered and electronically signed by Monica Dukes MD 09/20/24 15:07:
Will change patient to inpatient as he needs monitoring while started on hemodialysis. He needs hemodialysis 3 times as inpatient.
Original Note:
Today's Communication/Plan
-
HD
Assessment / Plan
Assessment / Plan
83-year-old male with history of end-stage renal disease hypertension hyperlipidemia presenting for dialysis
CVS: S1-S2 normal, sm at apex
Chest: CTA B/L
Abdomen: Soft, NT / Bowel sounds present
Extremities: B/L LE edema, normal pulses, pain knee
# End-stage renal disease
Metabolic acidosis
Admitted to initiate dialysis
Left upper extremity fistula in place
May hold sodium bicarb once started dialysis
Nephrology consulted
Case management to facilitate OP HD
# Urinary frequency and chills-UA neg
# Anemia likely of chronic disease
# Right knee pain- X ray
# Hypertension-on Norvasc, hydralazine, hydrochlorothiazide as outpatient
# Hyperlipidemia-continue statin
# History of prostate cancer with radiation
# DVT prophylaxis-CHRISTOPH
# Full code
D/W Son at bed side
D/W Case management
Anticipated Discharge: > 48 hours
Subjective/Interval History
-
Date of Service: September 20, 2024
Objective Data
-
Labs:
Laboratory Results
09/20/24
07:00
Hgb Pending
Hct Pending
Sodium Pending
Potassium Pending
Chloride Pending
Carbon Dioxide Pending
BUN Pending
Creatinine Pending
Glucose Pending
Calcium Pending
Vital Signs:
Vital Signs
Temp Pulse Resp BP Pulse Ox
97.8 F 65 16 144/66 98
09/20/24 08:00 09/20/24 08:00 09/20/24 08:00 09/20/24 08:00 09/20/24 08:00
I&O
09/19/24 09/20/24 09/21/24
06:59 06:59 06:59
Intake Total 480 / 480
Balance 480 / 480
--- NOTE | 2024-09-20 11:15 | CM ---
CM following re: discharger planning.
Reviewed pt's chart, met with pt and pt's son Salbador at bedside [phone].
Pt is an 83 year old male, admitted with OBS status and primary dx of ESRD for dialysis. PMH includes: HTN,prostate cancer,HLD,ESRD,rectal bleeding,squamous cell carcinoma of skin. OBS status explained to the pt, expressed understanding. [employer] letter
signed, placed on chart, pt has a copy.
Pt reports he lives alone in a 2[place] 55[place] community. his a few months ago and he will move to [facility] apartment within 2 weeks. Pt reports he has 3 supportive children. Pt described himself as inde[endent
in all areas [employer], drives. No DME, VN or SNF history.
Pt is aware he will need outpatient HD treatment and he requested [facility]. Pt stated his was on HD for 6 years, and she was going to [facility]. Pt stated that [facility] just 2 miles from [place]
[facility] and it will be very easy for him to get there. Pt is planning to drive to and from outpatient HD treatment. Pt requested [facility] as his dialysis days and he requested second shift 10-11 A.M.
A referral to [facility] corporate made with a request to set up outpatient HD treatment at [facility] for MWF, 10-11A.M chair time. First outpatient HD treatment tentatively requested for Wednesday09/24/24.
D/C plan: home with outpatient HD treatment at [facility] and family support. Son Salbador to transport.
CM will follow with discharge plan updates as hospitalization progresses
[2024-09-20 15:12] VITALS: BMI 25.3
--- NOTE | 2024-09-20 15:35 | W.PN.NEPH.PH ---
Today's Communication / Plan
-
Dialysis
Assessment/Plan
-
Impression:
CKD 5
Hypertension
Dyslipidemia
Anemia
Hyperphosphatemia
Left upper extremity AV
Metabolic acidosis
Plan:
-for intiation of HD
- Will attempt to utilize AV fistula
- Appropriate sodium and potassium dietary restrictions
- Maintain oral antihypertensives for hypertension
- Will provide ASTRID therapy for anemia of chronic kidney
- Will provide binder therapy if hyperphosphatemia persist on dialysis
Dialysis pending today
Had a long discussion with him about what to expect in the next few days with dialysis over 3-day.
The patient lives in [place] and is awaiting placement at [facility]
AV fistula was examined and is adequate to use though I did inform him that it could infiltrate as it is a new fistula.
Total Time Spent with Patient (in minutes): 31
-
-
Date of Service: September 20, 2024
CC / HPI / ROS
-
Chief Complaint:
Uremic symptoms
History of Present Illness:
Progressive renal disease with need to initiation of dialysis
Review of Systems:
No chest pain or shortness of breath
Generalized itching decreased sleep
Labs
-
Labs:
WBC 4.8 10^3/uL (4.8-10.8) 09/19/24 12:22
RBC 3.23 10^6/uL (4.70-6.10) L 09/19/24 12:22
Plt Count 181 10^3/uL (130-400) 09/19/24 12:22
eGFR 7.35 09/19/24 12:22
Albumin 3.9 g/dl (3.5-5.0) 09/19/24 12:22
Physical Exam
-
Vital Signs:
Vital Signs
Temp Pulse Resp BP Pulse Ox
97.8 F 65 16 144/66 98
09/20/24 08:00 09/20/24 08:00 09/20/24 08:00 09/20/24 08:00 09/20/24 14:53
Respiratory:: Bilateral: CTA
Lung Excursion:: Normal
Abdomen:: Soft
Bowel Sounds:: Normal
Extremity Edema:: None: Bilateral:
[2024-09-20 16:10] VITALS: BP 155/67
[2024-09-20 17:39] LABS: Hematocrit 27.9 % (39.0-52.0); Hemoglobin 9.8 g/dL (13.0-18.0)
[2024-09-20 17:53] LABS: Blood Urea Nitrogen 66 mg/dl (9-20); Calcium 8.4 mg/dl (8.4-10.2); Carbon Dioxide 26 mmol/L (22-30); Chloride 100 mmol/L (98-107); Estimated Creatinine Clearance 11 ml/min; Glucose 117 mg/dl (70-99); Iron 95 ug/dl (49-181); Phosphorus 4.3 mg/dl (2.5-4.5); Potassium 3.5 mmol/L (3.5-5.1); Sodium 135 mmol/L (135-145); eGFR 11.37
[2024-09-20 18:25] LABS: Hepatitis B Surface Antigen Negative (Negative)
[2024-09-20 18:42] LABS: Vitamin B12 338 pg/ml (239-931)
[2024-09-20] MEDS: NORVASC 10 MG PO (18:42)
[2024-09-20] MEDS: ORETIC 50 MG PO (18:42)
[2024-09-20] MEDS: APRESOLINE 25 MG PO ×2 (18:42→21:54)
[2024-09-20 18:43] LABS: Hepatitis B Core Ab, Total Negative (Negative); Hepatitis B Surface Antibody Negative; Hepatitis C Antibody Negative (Negative)
[2024-09-20] MEDS: LIPITOR 10 MG PO (18:43)
[2024-09-20 18:45] LABS: Percent Saturation 39 % (20-50); Total Iron Binding Capacity 239 ug/dl (261-462)
[2024-09-20 20:31] VITALS: BP 163/69
[2024-09-20 21:45] VITALS: BP 167/73
[2024-09-20 23:40] VITALS: BP 152/67
--- NOTE | 2024-09-21 03:20 | DOWNTIME ---
There was a [employer] Downtime on 09/21/2024 from 0200 to 09/22/2023 at 0318 .
[2024-09-21 05:52] VITALS: BMI 25.7
[2024-09-21 07:10] VITALS: BP 133/67
[2024-09-21] MEDS: TUMS CHEWABLE TABLET 200 MG PO ×3 (08:43→21:33)
[2024-09-21] MEDS: ORETIC 50 MG PO (08:43)
[2024-09-21] MEDS: SODIUM BICARBONATE 650 MG PO ×2 (08:44→20:28)
[2024-09-21] MEDS: HEPARIN 5000 UNITS SC ×2 (08:44→20:28)
[2024-09-21] MEDS: APRESOLINE 25 MG PO ×2 (08:44→20:25)
[2024-09-21] MEDS: NORVASC 10 MG PO (08:44)
--- NOTE | 2024-09-21 11:28 | CM ---
Reviewed the chart notes and spoke with the patient at the bedside. Patient provided with [facility] Welcome Letter. Patient has a HD chair 09/26/24 for T-Th-Sat at 11:30am. Patient waiting on second HD treatment today. CM
continues to be available to patient/family and is monitoring medical plan for needs at discharge.
Plan: Discharge to home when medically stable. Will start HD on 09/26 (Wednesday) @ 11:30am chair time at [facility]. . Patient will transport self to treatment.
--- NOTE | 2024-09-21 12:16 | W.PN.HOSP.TC ---
Today's Communication/Plan
-
For hemodialysis-acute
If okay with nephrology we can consider discharging him after dialysis tomorrow to start on Wednesday as outpatient.
Assessment / Plan
Assessment / Plan
83-year-old male with history of end-stage renal disease hypertension hyperlipidemia presenting for dialysis
CVS: S1-S2 normal, sm at apex
Chest: CTA B/L
Abdomen: Soft, NT / Bowel sounds present
Extremities: B/L LE edema, normal pulses, pain knee
Echo 09/20/2024-normal LV size and function. EF 60 to 65%. Normal diastolic function. Mild MR. Pulmonary artery pressure 31 mmHg.
# End-stage renal disease
Metabolic acidosis
Admitted to initiate dialysis
Left upper extremity fistula in place
May hold sodium bicarb once started dialysis
Nephrology consulted
Case management to facilitate OP HD
# Urinary frequency and chills-UA neg
# Anemia likely of chronic disease
# Right knee pain- X ray shows severe arthritis. Patient made aware that he may follow-up with orthopedics
# Hypertension-on Norvasc, hydralazine, hydrochlorothiazide as outpatient
# Hyperlipidemia-continue statin
# History of prostate cancer with radiation
# DVT prophylaxis-CHRISTOPH
# Full code
Discussed with nephrology
D/W Case management
Anticipated Discharge: Within 24 hours
Subjective/Interval History
-
Date of Service: September 21, 2024
Objective Data
-
Vital Signs:
Vital Signs
Temp Pulse Resp BP Pulse Ox
98.1 F 62 16 133/67 97
09/21/24 07:10 09/21/24 07:10 09/21/24 07:10 09/21/24 07:10 09/21/24 07:10
I&O
09/20/24 09/21/24 09/22/24
06:59 06:59 06:59
Intake Total 480 / 480 240 / 240
Balance 480 / 480 240 / 240
[2024-09-21 13:09] LABS: Hematocrit 29.4 % (39.0-52.0); Hemoglobin 10.2 g/dL (13.0-18.0); Mean Corp Hgb Conc. 34.7 g/dL (33.0-37.0); Mean Corpuscular Hgb 32.5 pg (27.0-31.0); Mean Corpuscular Volume 93.6 fL (80.0-94.0); Mean Platelet Volume 11.2 fL (7.4-10.4); Platelet Count 143 10^3/uL (130-400); Red Blood Cell Count 3.14 10^6/uL (4.70-6.10); White Blood Cell Count 4.4 10^3/uL (4.8-10.8)
--- NOTE | 2024-09-21 13:21 | W.PN.NEPH.HD ---
Assessment
-
Tolerating second treatment today
Treatment dialysis will be tomorrow Wednesday then will be okay for discharge and starting outpatient on Wednesday at [facility]
Progress Note - Hemodialysis
-
Date of Service: September 21, 2024
Duration: 3 hours
Potassium Bath: 3
Calcium Bath: 2.5
Opti-Dialyzer: 160
Blood Flow: 300
Dialysate Flow: 600
[2024-09-21 13:35] LABS: Blood Urea Nitrogen 64 mg/dl (9-20); Calcium 8.3 mg/dl (8.4-10.2); Carbon Dioxide 24 mmol/L (22-30); Chloride 97 mmol/L (98-107); Estimated Creatinine Clearance 11 ml/min; Glucose 131 mg/dl (70-99); Potassium 3.7 mmol/L (3.5-5.1); Sodium 133 mmol/L (135-145); eGFR 11.37
[2024-09-21] MEDS: HEPARIN 1000 UNITS IV (13:48)
[2024-09-21] MEDS: MANNITOL 25% 12.5 GRAMS IV (13:49)
[2024-09-21] MEDS: HEPARIN 500 UNITS IV (14:56)
[2024-09-21] MEDS: MANNITOL 25% IV (14:56)
[2024-09-21 15:30] VITALS: BP 148/62
[2024-09-21] MEDS: LIPITOR 10 MG PO (17:10)
[2024-09-21 20:25] VITALS: BP 172/75
[2024-09-21 23:23] VITALS: BP 143/73
[2024-09-22 07:05] VITALS: BP 133/62
--- NOTE | 2024-09-22 08:54 | W.PN.NEPH.HD ---
Assessment
-
Patient seen on dialysis
Systolic blood pressure stable at even ultrafiltration
Access flows good via fistula
Patient stable for discharge today with follow-up dialysis on Wednesday at his new unit [facility]
Progress Note - Hemodialysis
-
Date of Service: September 22, 2024
Duration: 15 minutes and 3 hours
Potassium Bath: 3
Calcium Bath: 2.5
Opti-Dialyzer: 160
Ultrafiltration: Other (Even)
Blood Flow: 300
Dialysate Flow: 600
Heparin: None
EPO: None
[2024-09-22 09:07] LABS: Hemoglobin 9.5 g/dL (13.0-18.0)
[2024-09-22 09:30] LABS: Carbon Dioxide 24 mmol/L (22-30); Chloride 99 mmol/L (98-107); Potassium 3.8 mmol/L (3.5-5.1); Sodium 136 mmol/L (135-145)
--- NOTE | 2024-09-22 09:54 | CM ---
Reviewed the chart notes and spoke with the patient at bedside. IMM reviewed. Patient on HD. Patient to be discharged today to home with outpatient HD at [facility] with chair time 1130 . Patient's son will transport the
patient home. CM continues to be available to patient/family and is monitoring medical plan for needs at discharge.
Plan: Discharge to home today.
--- NOTE | 2024-09-22 11:06 | W.PN.HOSP.TC ---
Today's Communication/Plan
-
Discharge after HD
Assessment / Plan
Assessment / Plan
83-year-old male with history of end-stage renal disease hypertension hyperlipidemia presenting for dialysis
CVS: S1-S2 normal, sm at apex
Chest: CTA B/L
Abdomen: Soft, NT / Bowel sounds present
Extremities: B/L LE edema, normal pulses, pain knee
Echo 09/20/2024-normal LV size and function. EF 60 to 65%. Normal diastolic function. Mild MR. Pulmonary artery pressure 31 mmHg.
# End-stage renal disease
Metabolic acidosis resolved
Admitted to initiate dialysis
Left upper extremity fistula in place
Hold sodium bicarb as started dialysis
Pt has been accepted at [facility]. Patient will follow-up with nephrology in [place].
# Urinary frequency and chills-UA neg. Has been afebrile here
# Anemia likely of chronic disease
# Right knee pain- X ray shows severe arthritis. Patient made aware that he may follow-up with orthopedics
# Hypertension-on Norvasc, hydralazine, hydrochlorothiazide as outpatient
# Hyperlipidemia-continue statin
# History of prostate cancer with radiation
# DVT prophylaxis-CHRISTOPH
# Full code
Discussed with nephrology
D/W Case management, patient has been accepted for outpatient dialysis to start on Wednesday
Discussed with dialysis nurse at bedside
More than 30 minutes spent in discharge including
Final examination of the patient
Summarizing hospital stay
Instructions for continuing care to all relevant caregivers
Preparation of discharge records, prescriptions, and referral forms
Total time spent (in minutes): 33 min
Anticipated Discharge: Today
Subjective/Interval History
-
Date of Service: September 22, 2024
Objective Data
-
Labs:
Laboratory Results
09/22/24
08:51
Hgb 9.5 L
Hct 28.0 L
Sodium 136
Potassium 3.8
Chloride 99
Carbon Dioxide 24
Vital Signs:
Vital Signs
Temp Pulse Resp BP Pulse Ox
97.8 F 58 17 133/62 98
09/22/24 07:05 09/22/24 07:05 09/22/24 07:05 09/22/24 07:05 09/22/24 07:05
I&O
09/21/24 09/22/24 09/23/24
06:59 06:59 06:59
Intake Total 240 / 240 900 / 900
Balance 240 / 240 900 / 900
--- NOTE | 2024-09-22 11:12 | W.DS.TRANS ---
Addendum entered and electronically signed by Monica Dukes MD 09/22/24 15:45:
Dictation- [id number]
Original Note:
DC Summary - Motors Assembler
-
Discharge Instructions:
Discharge Diagnosis/Procedures End-stage renal disease on dialysis
Hypertension
Severe arthritis
Diet 2 Gram Sodium,Restrict fluids to 64 oz,Restrict
fluids to 48 oz
Activity As tolerated
Driving Restrictions As prior to admission
Instructions:
Stand-Alone Forms:
Changes to Home Medications: Yes
Discharge Medications:
DC Medications w/original date entered in [employer]
amlodipine 10 mg tablet 10 mg PO DAILY Blood pressure #0 tabs 09/22/24
calcium carbonate (Tums) 500 mg (2.5 x 200 mg calcium (500 mg)) PO TID Electrolyte Repletion #0 tabs 09/22/24
cyanocobalamin (vitamin B-12) 1,000 mcg tablet (Vitamin B-12) 1,000 mcg PO DAILY Supplement #30 tabs 09/22/24
hydralazine 25 mg tablet 25 mg PO BID Blood pressure #0 tabs 09/22/24
simvastatin 20 mg tablet 20 mg PO QPM High cholesterol #0 tabs 09/22/24
HCTZ 50 mg dailly
Home Medication Changes
Sodium bicarb
Pending Results: No
[2024-09-22] MEDS: NORVASC 10 MG PO (12:10)
[2024-09-22] MEDS: TUMS CHEWABLE TABLET 200 MG PO (12:11)
[2024-09-22] MEDS: ORETIC 50 MG PO (12:11)
[2024-09-22] MEDS: APRESOLINE 25 MG PO (12:11)
[2024-09-22] MEDS: SODIUM BICARBONATE 650 MG PO (12:11)
[2024-09-22] MEDS: VITAMIN B-12 1000 MCG PO (12:11)
[2024-09-22] MEDS: HEPARIN 5000 UNITS SC (12:12)
[2024-09-23 09:47] LABS: Intact PTH 170.5 pg/ml (13.6-85.8)
== END 2024-09-22 15:02 | disposition home or self-care (01) | DRG 683 ==
LOC: 2 NORTH 15:24
PROVIDERS: Internal Medicine Nephrology; Physician Assistant; Registered Nurse; ADMITTING PHYSICIAN Hospitalist; ATTENDING PHYSICIAN Hospitalist; CONSULT PHYSICIAN Specialist; EMERGENCY PHYSICIAN Student in an Organized Health Care Education/Training Program; FAMILY PHYSICIAN Internal Medicine
PROC: 5A1D70Z Performance of Urinary Filtration, Intermittent, Less than 6 Hours Per Day (ICD-10-PCS; 2024-09-21)
DX: N18.6 End stage renal disease (principal); E87.20 Acidosis, unspecified; I12.0 Hypertensive chronic kidney disease with stage 5 chronic kidney disease or end stage renal disease; R60.0 Localized edema; D63.8 Anemia in other chronic diseases classified elsewhere; E83.39 Other disorders of phosphorus metabolism; E78.5 Hyperlipidemia, unspecified; R35.0 Frequency of micturition; L29.9 Pruritus, unspecified; M17.11 Unilateral primary osteoarthritis, right knee; Z60.2 Problems related to living alone; Z85.828 Personal history of other malignant neoplasm of skin; Z85.46 Personal history of malignant neoplasm of prostate; Z99.2 Dependence on renal dialysis; Z95.828 Presence of other vascular implants and grafts; Z92.3 Personal history of irradiation
CPT/HCPCS: 73564; 80048; 80051; 80053; 81003; 81015; 82607; 82728; 83540; 83550; 83970; 84100; 85014; 85018; 85025; 85027; 86704; 86706; 86803; 87340; 93306; 99285; G0257

== ENCOUNTER 2024-11-14 16:41 | Day surgery (SDC) | payer MEDICARE, OTHER, SELFPAY ==
[2024-11-14 13:36] VITALS: BP 175/80
--- NOTE | 2024-11-14 14:51 | ED.GENMED ---
History of Present Illness
General
Chief Complaint: Skin Problem
Source: patient
Time Seen by Provider: 11/14/24 14:27
History of Present Illness
History of Present Illness:
Note:
CHIEF COMPLAINT(S)
Dialysis fistula malfunction.
HISTORY OF PRESENT ILLNESS
The patient is an 83-year-old male with a newly initiated dialysis regimen who presents with a malfunctioning dialysis fistula. The patient reported to the emergency department with issues regarding the functionality of the fistula during a dialysis
session earlier today stating he only had 15 minutes of dialysis before his fistula stopped working. The patient underwent a dialysis session on Wednesday, which was reportedly his last complete session. The fistula is situated in the left arm and
has been functional since it was placed approximately [address] Ruano. The patient typically undergoes dialysis on a Wednesday, , and Wednesday schedule and has been advised to return on for a regular four-hour dialysis
session, contingent upon the resolution of the current fistula issue. He is without any pain or bleeding.
Past History
Past History
ED Past Medical History: Cancer, GERD, HTN, Hypercholesterolemia and Renal failure
ED Past Surgical History: Orthopedic, Tonsilectomy and Other
Social History
Tobacco: Non-smoker
Alcohol: None
Drug: None
Personal:
Living: alone
Review of Systems
Review of Systems
All Other Systems: ROS reviewed and negative except as documented in HPI and ROS
Phy Exam
Physical Exam
Physical Exam:
GENERAL: Alert , in no apparent distress, overall very well-appearing and in no acute distress
EYE: conjunctiva clear
Head: Normocephalic atraumatic
NECK: Supple,
ENT: mmm.
LUNGS: no acute respiratory distress
NEUROLOGICAL: Alert and oriented
SKIN: Warm and dry, skin intact.
MUSCULOSKELETAL: Left upper extremity fistula noted, palpable thrill, no significant edema and no bleeding from the AV fistula.
PSYCH: Normal and appropriate interaction.
Scores
Heart Failure Risk
Heart Failure Risk Score: Not Applicable
Heart Score for Chest Pain Patients
STEMI patient?: Not applicable
Withdrawal Assessment of Alcohol
Withdrawal Assessment Completed?: Not applicable
Course
Orders/Labs/Results
Orders:
Orders
11/14/24 14:31
Hemodialysis Graft US [US Hemodialysis Graft] Urgent
Comment:
Reason For Exam: malfunctioning LUE fistula
11/14/24 14:51
Basic Metabolic Panel Urgent
Complete Blood Count/With Diff Urgent
11/14/24 Dinner
Sodium, 2 Gram
At Your Request: Full Participation
Fluid Restriction: 1500 mL/day (50 oz)
Sodium, 2 Gram
Fluid Restriction: 1500 mL/day (50 oz)
11/14/24 15:49
Dexamethasone Sod Phosphate [Decadron] 20 mg .ROUTE .STK-MED ONE
Lidocaine 2% Mpf [Xylocaine Mpf 2%] 100 mg .ROUTE .STK-MED ONE
Ondansetron Injectable [Zofran] 4 mg .ROUTE .STK-MED ONE
Propofol [Diprivan] 20 ml .ROUTE .STK-MED
Rocuronium [place] [Rocuronium] 50 mg .ROUTE .STK-MED ONE
11/14/24 15:51
Heparin Sodium,Porcine/Ns/Pf [Heparin 2000 Units/1000 ml] 2,000 unit in 1,000 ml .ROUTE .STK-MED
Lidocaine HCl/Pf [Xylocaine-Mpf 1% Vial] 50 mg .ROUTE .STK-MED ONE
11/14/24 16:14
Midazolam HCl [Versed] 2 mg .ROUTE .STK-MED ONE
11/14/24 16:36
Code Status As Directed
Resuscitation Status: Full Code
Acetaminophen [Tylenol] 650 mg PO Q4HPRN PRN
Bisacodyl [Dulcolax] 10 mg RECTAL DAILYPRN PRN
Activity As Directed
Activity Level: Out of Bed- Ad Rachael
Intake/ Output As Directed
Frequency: Per unit guidelines
Neurovascular Checks As Directed
Location: Left Upper extremity
Frequency: Other
Other frequency: Q15min x 4, Q30min x 2, then Q1H x 4H, then Q4H
Notify MD As Directed
Notify physician if: - bleeding from catheter site
- hematoma
- loss of peripheral pulse/singal
- worsening temperature or color of limb
- loss of sensation or motor function in limb
Site Checks As Directed
Check access site for bleeding/hematoma: Yes
Comment: Q15min x 4, Q30min x 2, then Q1H x 4H
Vital Signs As Directed
Frequency: Other
Additional Instructions:: Q15min x 4, Q30min x 4, Q1hr x 3hrs (begin after hemostasis), then per unit
guidelines
11/14/24 16:45
Heparin 10,000 units .ROUTE .STK-MED ONE
11/14/24 16:51
Acetaminophen [Tylenol] 650 mg PO Q4HPRN PRN
Bisacodyl [Dulcolax] 10 mg RECTAL DAILYPRN PRN
Activity As Directed
Activity Level: Out of Bed- Ad Rachael
Intake/ Output As Directed
Frequency: Per unit guidelines
Neurovascular Checks As Directed
Location: Left Upper extremity
Frequency: Other
Other frequency: Q15min x 4, Q30min x 2, then Q1H x 4H, then Q4H
Notify MD As Directed
Notify physician if: - bleeding from catheter site
- hematoma
- loss of peripheral pulse/singal
- worsening temperature or color of limb
- loss of sensation or motor function in limb
Site Checks As Directed
Check access site for bleeding/hematoma: Yes
Comment: Q15min x 4, Q30min x 2, then Q1H x 4H
Vital Signs As Directed
Frequency: Other
Additional Instructions:: Q15min x 4, Q30min x 4, Q1hr x 3hrs (begin after hemostasis), then per unit
guidelines
11/14/24 17:26
Discharge Patient As Directed
Discharge patient after: has met criteria from PACU
Abnormal Lab Results
11/14/24
14:51
RBC 3.61 L 10^6/uL
(4.70-6.10)
Hgb 11.6 L g/dL
(13.0-18.0)
Hct 34.3 L %
(39.0-52.0)
MCV 95.0 H fL
(80.0-94.0)
MCH 32.1 H pg
(27.0-31.0)
MPV 11.4 H fL
(7.4-10.4)
BUN 54 H mg/dl
(9-20)
Creatinine 5.7 H* mg/dL
(0.7-1.3)
Glucose 118 H mg/dl
(70-99)
11/14/24 14:51
11/14/24 14:51
Vital Signs
Initial and Last Documented VS:
Initial Vital Signs
Temp Pulse Resp BP Pulse Ox
98.1 F 68 16 175/80 99
11/14/24 13:36 11/14/24 13:36 11/14/24 13:36 11/14/24 13:36 11/14/24 13:36
Last Documented Vital Signs
Temp Pulse Resp BP Pulse Ox
97.0 F 60 12 143/81 99
11/14/24 17:35 11/14/24 17:54 11/14/24 17:54 11/14/24 17:54 11/14/24 17:35
MDM/Problems Addressed
Differential Diagnosis Includes:
- Thrombosis of dialysis fistula
- Infection of dialysis fistula
- Mechanical obstruction
- Inadequate needle placement during dialysis
- Arteriovenous fistula stenosis
- External compression of the fistula
MDM/Problems Addressed:
- Contact Dr. Ruano or the on-call vascular specialist for evaluation of the fistula.
- Arrange for an ultrasound to assess the patency of the fistula.
- Consider scheduling an additional dialysis session before if deemed necessary by the vascular and dialysis teams.
*Pulse Oximetry
Patient hypoxic: no
*Critical Care Note
Total Time (30-74mins, 75-104mins- exclusive of procedures): Not Applicable
Data Reviewed
Review of Other/Old Records Reveals: Records and Operative Reports
Patient Management
Social determinants of health affecting care: Other (Prearranged outpatient follow-up)
Discussion with other providers: Fabric Inspector
Escalation/DeEscalation of care consider admission/obs:
Vascular surgery to take patient for fistulogram today. Assuming no complications patient will be discharged from the PACU. I notified patient's dialysis center, [facility], about patient's workup and treatment plan. They
unfortunately do not have any chairs available for him to be dialyzed tomorrow but they will dialyze him as scheduled on . I do think this is reasonable given patient's potassium is within normal limits and he is not exhibiting any overt
signs of respiratory complications from volume overload.
ED Attending Note
-
Portions of this chart may have been created with voice recognition software.� Occasional wrong word or��sound alike� substitutions may have occurred due to the inherent limitations of voice recognition software.
Discharge Plan
Departure
Patient Disposition: OR
Date of Disposition: 11/14/24
Time of Disposition: 15:41
Presentation/result/management discussed w/ accepting MD/DO: Dr. Volodymyr Pineda
Discharge Problem:
Dialysis AV fistula malfunction
Interventions
Interventions:
*Risk Screen - Suicide Last Done: 11/14/24 13:36
*General Assessment Last Done: 11/14/24 16:04
*Neglect/Abuse Screening Last Done: 11/14/24 13:36
*ED- Fall Risk Assessment Last Done: 11/14/24 16:04
*ED COVID-19 Vaccine History Last Done: 11/14/24 16:04
*Nursing Disposition Last Done: 11/14/24 16:52
Discharge Date and Time
Discharge Date/Time: 11/14/24 16:53
--- NOTE | 2024-11-14 14:53 | CON.VAS ---
Consultation
Consultation Request
Date/Time Consultation Performed: 11/14/24 1445
Requesting Provider: Mynor Dominique PA-C
Performing Provider: Krystal Meyer NP-C for Volodymyr Pineda III, MD
Reason for Consultation: Nonfunctioning AV fistula
Medical History
-
Chief Complaint: Malfunctioning AV fistula
History of Present Illness:
This is an 83-year-old male with significant past medical history for hypertension, renal failure on HD, prostate cancer, hyperlipidemia, anemia, and squamous cell carcinoma of skin who presents to [place] ED from his HD access center with
reports of malfunctioning left upper extremity AV fistula. Patient is known to our vascular surgical group as he had left upper extremity brachiocephalic AV fistula creation done by Dr. Rodríguez Ruano M.D. in May 2024. He eventually had progression
of his end-stage renal disease this past August prompting admission for initiation of HD access, his AV fistula was utilized and he endorses no difficulties with access until today. He states that he was roughly 20 minutes into his HD session when
machine began alarming, he was then disconnected from his HD machine and assessed by nurse practitioner in facility. He states that the nurse practitioner recommended ED evaluation. His last full session of HD was this past Wednesday (11/11/2024).
He offers no other complaints. Denies nausea, vomiting, fever, and chills. Denies left hand coolness, pain, or decrease sensation/motor function.
Past Medical History
Past Medical History: HTN, Renal Failure (HD (TTHSA)) and Other (Prostate cancer, hyperlipidemia, squamous cell carcinoma of skin, anemia )
Past Surgical History: Other (Left upper extremity brachiocephalic arteriovenous fistula creation 06/29/24, cataract surgery, tonsillectomy)
Social History
Tobacco: Non-Smoker
Alcohol: None
Personal: Single
Allergies / Home Medications
Allergy/AdvReac Type Severity Reaction Status Date / Time
No Known Allergies Allergy Verified 09/19/24 10:21
�Medication �Instructions �Recorded �Confirmed �Type
amlodipine 10 mg tablet 10 mg PO DAILY Blood pressure #0 09/22/24 09/19/24 Rx
tabs
calcium carbonate (Tums) 500 mg (2.5 x 200 mg calcium (500 09/22/24 09/19/24 Rx
mg)) PO TID Electrolyte Repletion
#0 tabs
cyanocobalamin (vitamin B-12) 1,000 mcg PO DAILY Supplement #30 09/22/24 Rx
1,000 mcg tablet (Vitamin B-12) tabs
hydralazine 25 mg tablet 25 mg PO BID Blood pressure #0 tabs 09/22/24 09/19/24 Rx
hydrochlorothiazide 25 mg tablet 50 mg (2 x 25 mg) PO DAILY #0 tabs 09/22/24 Rx
simvastatin 20 mg tablet 20 mg PO QPM High cholesterol #0 09/22/24 09/19/24 Rx
tabs
Review of Systems
-
History Source: Patient
Constitutional: Reports No Symptoms
EENT: Reports No Symptoms
Respiratory: Reports No Symptoms
Cardiac: Reports No Symptoms
Vascular: Reports Other (Left upper extremity AV fistula with low flow volumes leading to early cessation of HD session)
Abdomen/GI: Reports No Symptoms
: Reports No Symptoms
Musculoskeletal: Reports No Symptoms
Skin: Reports No Symptoms
Neurological: Reports No Symptoms
Endocrine: Reports No Symptoms
Physical Exam
Vital Signs
Temp Pulse Resp BP Pulse Ox
98.1 F 68 16 175/80 99
11/14/24 13:36 11/14/24 13:36 11/14/24 13:36 11/14/24 13:36 11/14/24 13:36
Physical Exam
General: No Apparent Distress
HEENT: Normocephalic, Anicteric and Atraumatic
Respiratory: Non Labored Respirations
Cardiac: Negative JVD
GI: Soft, Non Tender and Non Distended
Musculoskeletal: No Edema
Skin: Warm and Other (Left upper extremity AV fistula pulsatile, no palpable thrill, left radial pulse +2, left hand warm, motor and sensation intact)
Neuro: Awake, Alert and Oriented
Assessment / Plan
-
Assessment: 83-year-old male ESRD with left upper extremity AV fistula, with suspected low flow volumes leading to early cessation of HD session and recommendation to seek ED evaluation for suspected clot.
Plan:
Left upper extremity AV fistula ultrasound, final surgical plan pending results. Plan reviewed with attending Dr. Volodymyr Pineda III
I performed this shared service with the attending. I evaluated the patient [id number] and have entered clinical documentation as shown in the encounter note. I performed the following component(s):�history and physical exam. Note that medical
decision making is not final until attested by vascular attending.
[2024-11-14 15:21] LABS: Blood Urea Nitrogen 54 mg/dl (9-20); Calcium 9.5 mg/dl (8.4-10.2); Carbon Dioxide 26 mmol/L (22-30); Chloride 99 mmol/L (98-107); Glucose 118 mg/dl (70-99); Potassium 4.1 mmol/L (3.5-5.1); Sodium 137 mmol/L (135-145); eGFR 9.25
[2024-11-14 15:50] VITALS: BMI 22.1
--- NOTE | 2024-11-14 16:33 | PHANOTE ---
11/14/2024, pt. and pt.'s daughter not sure of pt.'s meds.; ecw records are from 10/17/2024.
[2024-11-14 17:13] VITALS: BP 137/59; BP_SYST 16
--- NOTE | 2024-11-14 17:18 | W.SUR.PREOP ---
Addendum entered and electronically signed by Volodymyr Pineda III, MD 11/14/24 17:20:
.
Original Note:
Pre-Operative Surgical Note
-
I have examined this patient prior to the performance of the scheduled procedure.
The patient's condition is unchanged from the time of the current History and
Physical and the patient is able to undergo the scheduled procedure.
--- NOTE | 2024-11-14 17:20 | OR.RPT ---
Operative Report
Operative Report
Date of Operation: 11/14/2024
Pre Op Diagnosis: Malfunctioning left upper extremity brachiocephalic arteriovenous fistula with inability to receive dialysis today
Post Op Diagnosis: Malfunctioning left upper extremity brachiocephalic arteriovenous fistula with inability to receive dialysis today
Procedure:
1. Balloon angioplasty of proximal venous outflow stenosis (5 mm x 40 mm angioplasty balloon)
2. Left upper extremity fistulogram
3. Central venogram
4. Ultrasound-guided percutaneous access to the left upper extremity arteriovenous fistula
Surgeon: Volodymyr Pineda III, MD
Distribution Center Administrator: None
Anesthesia: Sedation/local
Complications: None
Fluoroscopy:
6.6 minutes
13 mGy
2.91 DAP
History and Indications for Procedure: 83-year-old male with left upper extremity brachiocephalic arteriovenous fistula. There was a problem at dialysis earlier today and his fistula could not be accessed. A duplex was obtained preoperatively
which showed a significant velocity elevation at the proximal venous outflow but no other velocity elevations were identified to suggest additional venous outflow stenosis. He was brought to the operating room for interrogation of the fistula and
possible endovascular intervention.
Procedure in Detail: Derrick Minor was correctly identified and placed supine on the operating table. After adequate induction of anesthesia the left arm was positioned, prepped and draped in the usual sterile fashion. A timeout procedure was
performed with the nursing and anesthesia staff confirming the patient�s identity as well as the nature and laterality of the procedure.
Intraoperative ultrasound was performed on the AV access. This was a left upper extremity brachiocephalic arteriovenous fistula. The fistula was patent.
I identified a puncture site along the fistula, proximal to the elbow and infiltrated local anesthesia at this site. Under ultrasound guidance I accessed the fistula with a micropuncture needle facing towards the venous outflow and placed the
micropuncture sheath. I performed a fistulogram which demonstrated the following:
Fistulogram: Patent fistula. Cephalic vein patent with no venous outflow stenoses identified along the mid or distal aspect. Patent cephalic vein in the upper arm. Patent cephalic arch with no stenosis identified. Reflux fistulogram demonstrated
a stenosis in the proximal venous outflow adjacent to the arteriovenous anastomosis. There was reflux across the anastomosis into the brachial artery which was patent.
Central venogram: Widely patent central venous system with no evidence of stenosis.
Endovascular intervention:
Systemic heparin was administered. The micro sheath direction was carefully reversed under fluoroscopic guidance using the microwire. The wire was advanced towards the arteriovenous anastomosis. A short 5 Fr sheath was placed over a [employer] wire.
Under roadmap guidance a V18 wire was used to cross the stenosis in the proximal venous outflow as well as the arteriovenous anastomosis. The wire was advanced into the more distal brachial artery. I then brought a 5 mm x 40 mm angioplasty balloon
into position under roadmap guidance and centered this across the stenosis. This was inflated to nominal pressure and held in place for 2 minutes. Subsequent images demonstrated an excellent technical result.
Completion fistulogram demonstrated widely patent fistula with minimal residual stenosis in the proximal venous outflow.
At the conclusion of the procedure a Monocryl suture was placed around the sheath puncture site. The sheath was removed and the suture secured. Hemostasis was achieved. A sterile dressing was applied.
The patient tolerated the procedure well and was taken to the PACU in stable condition
Signed:
Volodymyr Pineda III, MD
Vascular Surgery
[facility]
[2024-11-14 17:28] VITALS: BP 139/61; BP_SYST 17
[2024-11-14 17:35] VITALS: BP 129/66; BP 140/61
[2024-11-14 17:54] VITALS: BP 143/81
[2024-11-14 19:00] LABS: % Basophils 0.7 % (0-2); % Immature Granulocytes 0.4 % (0-0.5); % Lymphocytes 21.4 % (20.5-51.1); % Monocytes 7.8 % (1.7-9.3); % Neutrophils 68.7 % (42.2-75.2); Absolute Basophils 0.1 10^3/uL (0-0.2); Absolute Eosinophils 0.1 10^3/uL (0-0.7); Absolute Lymphocytes 1.5 10^3/uL (1.2-3.4); Absolute Monocytes 0.5 10^3/uL (0.1-0.6); Absolute Neutrophils 4.7 10^3/uL (1.4-6.5); Hematocrit 34.3 % (39.0-52.0); Hemoglobin 11.6 g/dL (13.0-18.0); Mean Corp Hgb Conc. 33.8 g/dL (33.0-37.0); Mean Corpuscular Hgb 32.1 pg (27.0-31.0); Mean Platelet Volume 11.4 fL (7.4-10.4); Nucleated Red Blood Cells % 0 % (-); Platelet Count 223 10^3/uL (130-400); Red Blood Cell Count 3.61 10^6/uL (4.70-6.10); White Blood Cell Count 6.9 10^3/uL (4.8-10.8)
== END 2024-11-14 18:20 | disposition home or self-care (01) ==
LOC: CATH 16:41
PROVIDERS: Physician Assistant Medical; ATTENDING PHYSICIAN Surgery Vascular Surgery; EMERGENCY PHYSICIAN Emergency Medicine; FAMILY PHYSICIAN Internal Medicine
DX: T82.858D Stenosis of other vascular prosthetic devices, implants and grafts, subsequent encounter (principal); E78.00 Pure hypercholesterolemia, unspecified; N18.6 End stage renal disease; I12.0 Hypertensive chronic kidney disease with stage 5 chronic kidney disease or end stage renal disease; Z85.828 Personal history of other malignant neoplasm of skin; Z90.89 Acquired absence of other organs; Z99.2 Dependence on renal dialysis
CPT/HCPCS: 36902; 80048; 85025; 93990; 99284; C1725; C1769; C1894; Q9967

== ENCOUNTER → 2025-01-10 14:22 | Outpatient (REF) | payer MEDICARE, OTHER, SELFPAY | LOC: RAD 14:22 | PROVIDERS: ATTENDING PHYSICIAN Surgery Vascular Surgery; FAMILY PHYSICIAN Internal Medicine | DX: I77.0 Arteriovenous fistula, acquired (principal); M19.90 Unspecified osteoarthritis, unspecified site | CPT/HCPCS: 73564; 93990 ==

== ENCOUNTER → 2025-02-14 09:35 | Outpatient (REF) | payer MEDICARE, OTHER, SELFPAY | LOC: RAD 09:35 | PROVIDERS: ATTENDING PHYSICIAN Registered Nurse; FAMILY PHYSICIAN Internal Medicine | DX: I77.0 Arteriovenous fistula, acquired (principal) | CPT/HCPCS: 93990 ==